=== PATIENT | male | born 1975 | race Caucasian/White ===

== ENCOUNTER 2019-01-06 13:58 | Emergency (ER) | payer SELFPAY ==
[~2019-01-06] VITALS: Ht 162.6 cm; Wt 59.1 kg
[2019-01-06 14:49] LABS: HEMATOCRIT 38.3 % (39.0-50.0); HEMOGLOBIN 13.4 g/dl (14.0-18.0); IMMATURE GRANULOCYTES 0.2 % (0.0-5.0); MEAN CORPUSCULAR HGB 31.8 pG CALC (26.0-32.0); NEUT# 3.68 thou/uL (1.82-7.42); RED BLOOD COUNT 4.21 mill/uL (4.70-6.10); RED CELL DISTRI WIDTH 12.6 % (11.5-15.5)
[2019-01-06] MEDS ORDERED: VENTOLIN HFA IN (15:05)
[2019-01-06] MEDS ORDERED: ADVAIR DISK1 IN (15:06)
[2019-01-06 15:17] LABS: ALKALINE PHOSPHATASE 53 u/l (38-126); ANION GAP 13 (6-22 (CALC)); BILIRUBIN, TOTAL 0.4 mg/dL (0.0-1.4); BUN 14 mg/dL (9-20); BUN/CREATININE RATIO 18 (12-20 (CALC)); CARBON DIOXIDE 26 mmol/l (22-30); CHLORIDE 106 mmol/l (95-108); CREATININE 0.8 mg/dL (0.7-1.3); GFR > 60 ML/MIN (>=60 (CALC)); GFR FOR AFR.AMER. > 60 ML/MIN (>=60 (CALC)); POTASSIUM 3.5 mmol/l (3.5-5.1); SGOT/AST 21 u/l (17-59); SODIUM 142 mmol/l (137-146); TOTAL PROTEIN 6.3 g/dL (6.3-8.2)
[2019-01-06] MEDS ORDERED: CIPROFLOXACN500 MG PO (16:22)
[2019-01-06] MEDS ORDERED: METRONIDAZOL500 MG PO (16:22)
[2019-01-06] MEDS ORDERED: ONDANSETRON4 MG PO (16:22)
[2019-01-06 16:34] VITALS: BP 156/94
== END 2019-01-06 16:35 | disposition home or self-care (01) | DRG 392 ==
LOC: ED 13:58
PROVIDERS: Family Medicine
DX: K57.32 Diverticulitis of large intestine without perforation or abscess without bleeding (principal); R07.81 Pleurodynia
CPT/HCPCS: Q9967

== ENCOUNTER 2019-03-01 09:01 | Emergency (ER) | payer SELFPAY ==
[~2019-03-01] VITALS: Ht 162.6 cm; Wt 61.4 kg
[~2019-03-01 09:01] MED LIST: ADVAIR DISK1 IN; CIPROFLOXACN500 MG PO; METRONIDAZOL500 MG PO; ONDANSETRON4 MG PO; VENTOLIN HFA IN
[2019-03-01 09:36] LABS: HEMATOCRIT 43.4 % (39.0-50.0); HEMOGLOBIN 14.8 g/dl (14.0-18.0); IMMATURE GRANULOCYTES 0.3 % (0.0-5.0); MEAN CELL VOLUME 91.9 fL CALC (80.0-100.0); MEAN CORPUSCULAR HGB 31.4 pG CALC (26.0-32.0); MEAN CORPUSCULAR HGB CONC 34.1 g/L CALC (32.0-36.0); NEUT# 4.08 thou/uL (1.82-7.42); RED BLOOD COUNT 4.72 mill/uL (4.70-6.10); RED CELL DISTRI WIDTH 12.7 % (11.5-15.5)
[2019-03-01] MEDS ORDERED: TRELEGY ELLIPTA1 AER IN (10:50)
[2019-03-01] MEDS ORDERED: DUONEB IN (10:51)
[2019-03-01 12:01] LABS: ALBUMIN 4.8 g/dL (3.2-5.0); ALKALINE PHOSPHATASE 65 u/l (38-126); ANION GAP 14 (6-22 (CALC)); BILIRUBIN, TOTAL 0.8 mg/dL (0.0-1.4); BUN 15 mg/dL (9-20); BUN/CREATININE RATIO 18 (12-20 (CALC)); CARBON DIOXIDE 28 mmol/l (22-30); CHLORIDE 104 mmol/l (95-108); CREATININE 0.8 mg/dL (0.7-1.3); GFR > 60 ML/MIN (>=60 (CALC)); GFR FOR AFR.AMER. > 60 ML/MIN (>=60 (CALC)); POTASSIUM 4.4 mmol/l (3.5-5.1); SGOT/AST 24 u/l (17-59); SODIUM 142 mmol/l (137-146); TOTAL PROTEIN 7.3 g/dL (6.3-8.2)
[2019-03-01] MEDS ORDERED: MEDDOSEPAK PO (13:24)
[2019-03-01] MEDS ORDERED: ZITHROMAX250 MG PO (13:24)
[2019-03-01] MEDS ORDERED: VENTOLIN HFA IN (13:24)
[2019-03-01 13:29] VITALS: BP 139/88
== END 2019-03-01 13:34 | disposition home or self-care (01) | DRG 192 ==
LOC: ED 09:01
PROVIDERS: Emergency Medicine
DX: J44.1 Chronic obstructive pulmonary disease with (acute) exacerbation (principal); R06.02 Shortness of breath
CPT/HCPCS: J3475

== ENCOUNTER 2019-04-07 19:36 | Inpatient (IN) | payer MEDICARE, OTHER ==
[~2019-04-07] VITALS: Ht 162.6 cm; Wt 59.8 kg
[~2019-04-07 19:36] MED LIST changes: +DUONEB IN; +MEDDOSEPAK PO; +TRELEGY ELLIPTA1 AER IN; +ZITHROMAX250 MG PO
[2019-04-07 20:03] LABS: HEMATOCRIT 46.3 % (39.0-50.0); HEMOGLOBIN 15.5 g/dl (14.0-18.0); IMMATURE GRANULOCYTES 0.3 % (0.0-5.0); MEAN CELL VOLUME 93.5 fL CALC (80.0-100.0); MEAN CORPUSCULAR HGB 31.3 pG CALC (26.0-32.0); MEAN CORPUSCULAR HGB CONC 33.5 g/L CALC (32.0-36.0); NEUT# 4.18 thou/uL (1.82-7.42); RED BLOOD COUNT 4.95 mill/uL (4.70-6.10); RED CELL DISTRI WIDTH 13.2 % (11.5-15.5)
[2019-04-07 20:17] LABS: ALBUMIN 5.2 g/dL (3.2-5.0); ALKALINE PHOSPHATASE 73 u/l (38-126); ANION GAP 20 (6-22 (CALC)); BILIRUBIN, TOTAL 0.8 mg/dL (0.0-1.4); BUN 16 mg/dL (9-20); BUN/CREATININE RATIO 17 (12-20 (CALC)); CARBON DIOXIDE 27 mmol/l (22-30); CHLORIDE 102 mmol/l (95-108); CREATININE 0.9 mg/dL (0.7-1.3); GFR > 60 ML/MIN (>=60 (CALC)); GFR FOR AFR.AMER. > 60 ML/MIN (>=60 (CALC)); POTASSIUM 4.8 mmol/l (3.5-5.1); SGOT/AST 29 u/l (17-59); SODIUM 145 mmol/l (137-146); TOTAL PROTEIN 7.9 g/dL (6.3-8.2)
[2019-04-07 20:29] LABS: MYOGLOBIN 60 ng/mL (0 - 121)
[2019-04-07 21:40] VITALS: BP 147/92
[2019-04-07 22:00] VITALS: BP 145/77
[2019-04-07 22:15] VITALS: BP 142/79
[2019-04-07 22:45] VITALS: BP 154/75
[2019-04-07 23:15] VITALS: BP 137/72
[2019-04-08] VITALS (12 sets, daily range): BP systolic 108–138; BP diastolic 62–85
[2019-04-08 10:43] LABS: URINE BILIRUBIN - DIPSTICK NEGATIVE (NEGATIVE); URINE BLOOD DIPSTICK NEGATIVE (NEGATIVE); URINE COLOR YELLOW; URINE GLUCOSE - DIPSTICK 500 mg/dL (NEGATIVE); URINE KETONE NEGATIVE (NEGATIVE); URINE LEUK ESTERASE NEGATIVE (NEGATIVE); URINE NITRITE - DIPSTICK NEGATIVE (Negative); URINE PH 5.5 (4.5-8.0); URINE PROTEIN - DIPSTICK NEGATIVE (NEG-TRACE); URINE SPECIFIC GRAVITY 1.025; URINE UROBILINOGEN - DIPSTICK 0.2 E.U./dL (0.2)
[2019-04-08] MEDS ORDERED: TYLENOL500 MG PO (15:09)
[2019-04-09] VITALS (8 sets, daily range): BP systolic 107–145; BP diastolic 53–89
[2019-04-09 05:50] LABS: MEAN CELL VOLUME 93.8 fL CALC (80.0-100.0); MEAN CORPUSCULAR HGB 31.4 pG CALC (26.0-32.0); MEAN CORPUSCULAR HGB CONC 33.5 g/L CALC (32.0-36.0); RED BLOOD COUNT 4.01 mill/uL (4.70-6.10); RED CELL DISTRI WIDTH 13.1 % (11.5-15.5)
[2019-04-09 05:57] LABS: HEMATOCRIT 37.6 % (39.0-50.0); HEMOGLOBIN 12.6 g/dl (14.0-18.0)
[2019-04-09 05:58] LABS: ANION GAP 14 (6-22 (CALC)); BUN 16 mg/dL (9-20); BUN/CREATININE RATIO 22 (12-20 (CALC)); CARBON DIOXIDE 26 mmol/l (22-30); CHLORIDE 104 mmol/l (95-108); CREATININE 0.7 mg/dL (0.7-1.3); GFR > 60 ML/MIN (>=60 (CALC)); GFR FOR AFR.AMER. > 60 ML/MIN (>=60 (CALC)); POTASSIUM 4.6 mmol/l (3.5-5.1); SODIUM 139 mmol/l (137-146)
[2019-04-10 00:18] VITALS: BP 147/93
[2019-04-10 04:30] VITALS: BP 132/91
[2019-04-10 05:41] LABS: ANION GAP 13 (6-22 (CALC)); BUN 21 mg/dL (9-20); BUN/CREATININE RATIO 26 (12-20 (CALC)); CARBON DIOXIDE 28 mmol/l (22-30); CHLORIDE 103 mmol/l (95-108); CREATININE 0.8 mg/dL (0.7-1.3); GFR > 60 ML/MIN (>=60 (CALC)); GFR FOR AFR.AMER. > 60 ML/MIN (>=60 (CALC)); POTASSIUM 4.6 mmol/l (3.5-5.1); SODIUM 139 mmol/l (137-146)
[2019-04-10 08:33] VITALS: BP 149/68
[2019-04-10 11:24] VITALS: BP 142/92
[2019-04-10 15:07] VITALS: BP 132/90
[2019-04-10 19:29] VITALS: BP 132/94
[2019-04-11 00:30] VITALS: BP 145/84
[2019-04-11 04:10] VITALS: BP 143/90
[2019-04-11 08:51] VITALS: BP 130/80
[2019-04-11 10:57] VITALS: BP 149/90
[2019-04-11 16:27] VITALS: BP 138/87
[2019-04-11 19:56] VITALS: BP 160/87
[2019-04-12] VITALS (7 sets, daily range): BP systolic 116–156; BP diastolic 71–94
[2019-04-13 04:42] VITALS: BP 144/85
[2019-04-13 08:11] VITALS: BP 132/84
[2019-04-13 10:52] VITALS: BP 138/90
[2019-04-13 15:26] VITALS: BP 107/70
[2019-04-13] MEDS ORDERED: PREDNISONE10 MG PO (17:22)
[2019-04-13] MEDS ORDERED: IPRATROPIU0.5 MG/3 M IN (17:33)
== END 2019-04-13 18:26 | disposition home or self-care (01) | DRG 189 ==
LOC: ED 19:36 → ED-I 20:20 → ED 21:17 → MS2 21:18 → ICU 21:18 → MS2 04-09 16:12
PROVIDERS: Emergency Medicine; Internal Medicine; ADMIT Internal Medicine; ATTEND Internal Medicine
DX: J96.22 Acute and chronic respiratory failure with hypercapnia (principal); J43.9 Emphysema, unspecified; J96.21 Acute and chronic respiratory failure with hypoxia; Z87.891 Personal history of nicotine dependence; Z99.81 Dependence on supplemental oxygen
CPT/HCPCS: J1650; Q9967

== ENCOUNTER 2019-05-10 17:26 | Inpatient (IN) | payer MEDICARE, OTHER ==
[~2019-05-10] VITALS: Ht 162.6 cm; Wt 61.5 kg
[2019-05-10] VITALS (10 sets, daily range): BP systolic 132–211; BP diastolic 78–109
[~2019-05-10 17:26] MED LIST changes: +IPRATROPIU0.5 MG/3 M IN; +PREDNISONE10 MG PO; +TYLENOL500 MG PO
[2019-05-10 17:58] LABS: HEMATOCRIT 43.2 % (39.0-50.0); IMMATURE GRANULOCYTES 0.6 % (0.0-5.0); MEAN CELL VOLUME 90.8 fL CALC (80.0-100.0); MEAN CORPUSCULAR HGB 31.1 pG CALC (26.0-32.0); MEAN CORPUSCULAR HGB CONC 34.3 g/L CALC (32.0-36.0); NEUT# 6.75 thou/uL (1.82-7.42); RED BLOOD COUNT 4.76 mill/uL (4.70-6.10); RED CELL DISTRI WIDTH 12.1 % (11.5-15.5)
[2019-05-10 18:02] LABS: HEMOGLOBIN 14.8 g/dl (14.0-18.0)
[2019-05-10 18:10] LABS: ANION GAP 12 (6-22 (CALC)); BUN 21 mg/dL (9-20); BUN/CREATININE RATIO 21 (12-20 (CALC)); CARBON DIOXIDE 33 mmol/l (22-30); CHLORIDE 98 mmol/l (95-108); GFR > 60 ML/MIN (>=60 (CALC)); GFR FOR AFR.AMER. > 60 ML/MIN (>=60 (CALC)); POTASSIUM 3.9 mmol/l (3.5-5.1); SODIUM 140 mmol/l (137-146)
[2019-05-11] VITALS (16 sets, daily range): BP systolic 94–149; BP diastolic 63–94
[2019-05-11 05:41] LABS: HEMATOCRIT 37.7 % (39.0-50.0); HEMOGLOBIN 13.1 g/dl (14.0-18.0); IMMATURE GRANULOCYTES 0.6 % (0.0-5.0); MEAN CELL VOLUME 90.2 fL CALC (80.0-100.0); MEAN CORPUSCULAR HGB 31.3 pG CALC (26.0-32.0); MEAN CORPUSCULAR HGB CONC 34.7 g/L CALC (32.0-36.0); NEUT# 4.48 thou/uL (1.82-7.42); RED BLOOD COUNT 4.18 mill/uL (4.70-6.10)
[2019-05-11 06:10] LABS: ANION GAP 11 (6-22 (CALC)); BUN 16 mg/dL (9-20); BUN/CREATININE RATIO 22 (12-20 (CALC)); CARBON DIOXIDE 29 mmol/l (22-30); CHLORIDE 102 mmol/l (95-108); CREATININE 0.7 mg/dL (0.7-1.3); GFR > 60 ML/MIN (>=60 (CALC)); GFR FOR AFR.AMER. > 60 ML/MIN (>=60 (CALC)); POTASSIUM 4.6 mmol/l (3.5-5.1); SODIUM 137 mmol/l (137-146)
[2019-05-12] VITALS (10 sets, daily range): BP systolic 109–149; BP diastolic 71–91
[2019-05-12 05:41] LABS: HEMATOCRIT 38.6 % (39.0-50.0); HEMOGLOBIN 13.2 g/dl (14.0-18.0); MEAN CELL VOLUME 91.3 fL CALC (80.0-100.0); MEAN CORPUSCULAR HGB 31.2 pG CALC (26.0-32.0); MEAN CORPUSCULAR HGB CONC 34.2 g/L CALC (32.0-36.0); RED BLOOD COUNT 4.23 mill/uL (4.70-6.10)
[2019-05-12 05:56] LABS: ANION GAP 11 (6-22 (CALC)); BUN 17 mg/dL (9-20); BUN/CREATININE RATIO 23 (12-20 (CALC)); CARBON DIOXIDE 30 mmol/l (22-30); CHLORIDE 103 mmol/l (95-108); CREATININE 0.7 mg/dL (0.7-1.3); GFR > 60 ML/MIN (>=60 (CALC)); GFR FOR AFR.AMER. > 60 ML/MIN (>=60 (CALC)); POTASSIUM 4.1 mmol/l (3.5-5.1); SODIUM 140 mmol/l (137-146)
[2019-05-13 00:03] VITALS: BP 143/76
[2019-05-13 04:05] VITALS: BP 151/81
[2019-05-13 08:00] VITALS: BP 141/90
[2019-05-13] MEDS ORDERED: ZITHROMAX250 MG PO (09:58)
[2019-05-13] MEDS ORDERED: PREDNISONE10 MG PO (09:58)
== END 2019-05-13 11:42 | disposition home or self-care (01) | DRG 189 ==
LOC: ED 17:26 → ED-I 18:31 → ED 18:51 → ICU 18:52 → MS2 05-12 15:05
PROVIDERS: Family Medicine; ADMIT Internal Medicine; ATTEND Internal Medicine
PROC: 5A09357 Assistance with Respiratory Ventilation, Less than 24 Consecutive Hours, Continuous Positive Airway Pressure (ICD-10-PCS; principal; 2019-05-10)
DX: J96.22 Acute and chronic respiratory failure with hypercapnia (principal); J43.9 Emphysema, unspecified; J96.21 Acute and chronic respiratory failure with hypoxia; K21.9 Gastro-esophageal reflux disease without esophagitis; M54.41 Lumbago with sciatica, right side; Z99.81 Dependence on supplemental oxygen; Z87.891 Personal history of nicotine dependence
CPT/HCPCS: J2060

== ENCOUNTER 2019-05-24 08:38 | Emergency (ER) | payer OTHER ==
[~2019-05-24] VITALS: Ht 162.6 cm; Wt 85.0 kg
[2019-05-24 09:07] LABS: HEMATOCRIT 42.6 % (39.0-50.0); HEMOGLOBIN 14.8 g/dl (14.0-18.0); IMMATURE GRANULOCYTES 0.5 % (0.0-5.0); MEAN CELL VOLUME 91.2 fL CALC (80.0-100.0); MEAN CORPUSCULAR HGB 31.7 pG CALC (26.0-32.0); MEAN CORPUSCULAR HGB CONC 34.7 g/L CALC (32.0-36.0); NEUT# 4.25 thou/uL (1.82-7.42); RED BLOOD COUNT 4.67 mill/uL (4.70-6.10); RED CELL DISTRI WIDTH 12.5 % (11.5-15.5)
[2019-05-24 09:34] LABS: ANION GAP 15 (6-22 (CALC)); BUN 19 mg/dL (9-20); BUN/CREATININE RATIO 22 (12-20 (CALC)); CARBON DIOXIDE 31 mmol/l (22-30); CHLORIDE 100 mmol/l (95-108); CREATININE 0.9 mg/dL (0.7-1.3); GFR > 60 ML/MIN (>=60 (CALC)); GFR FOR AFR.AMER. > 60 ML/MIN (>=60 (CALC)); POTASSIUM 4.4 mmol/l (3.5-5.1); SODIUM 142 mmol/l (137-146)
[2019-05-24] MEDS ORDERED: VENTOLIN H108 MCG/AC PO (10:23)
[2019-05-24] MEDS ORDERED: IPRATROPIU0.5 MG/3 M IN (10:23)
[2019-05-24] MEDS ORDERED: ZPAK PO (10:28)
[2019-05-24] MEDS ORDERED: PREDNISONE50 MG PO (10:28)
[2019-05-24 10:45] VITALS: BP 132/76
== END 2019-05-24 10:45 | disposition home or self-care (01) ==
LOC: ED 08:38
PROVIDERS: Family Medicine
DX: J44.1 Chronic obstructive pulmonary disease with (acute) exacerbation (principal); Z91.14 Patient's other noncompliance with medication regimen; R06.02 Shortness of breath

== ENCOUNTER 2019-05-30 18:17 | Emergency (ER) | payer OTHER ==
[~2019-05-30] VITALS: Ht 162.6 cm; Wt 81.8 kg
[~2019-05-30 18:17] MED LIST changes: +PREDNISONE50 MG PO; +VENTOLIN H108 MCG/AC PO; +ZPAK PO
[2019-05-30 19:11] LABS: HEMATOCRIT 43.2 % (39.0-50.0); HEMOGLOBIN 15.1 g/dl (14.0-18.0); IMMATURE GRANULOCYTES 0.6 % (0.0-5.0); MEAN CELL VOLUME 90.6 fL CALC (80.0-100.0); MEAN CORPUSCULAR HGB 31.7 pG CALC (26.0-32.0); NEUT# 5.01 thou/uL (1.82-7.42); RED BLOOD COUNT 4.77 mill/uL (4.70-6.10); RED CELL DISTRI WIDTH 12.7 % (11.5-15.5)
--- NOTE | 2019-05-30 19:13 | NUR ---
PATIENT RECEIVED 3 TX BACK TO BACK WITH DUONEB. ABG DRAWN AND ANALYSED. RESULT IN [facility]. AFTER SEEING THE PATIENT AFTER THE BREATHING TREATMENT, MD ORDERED INTUBATION. WAS INTUBATED WITH A 7.5 ETT AT 21 CM OF THE LIPS. TUBE PLACEMENT VERIFIED WITH CO2 DETECTOR, BREATH SOUND AND X-RAY. PLACED ON VENTILATOR WITH THE FOLLOWING SETTING: AC 12, VT 500, PEEP 5 AND 60% OXYGEN.
[2019-05-30 19:24] LABS: ANION GAP 16 (6-22 (CALC)); BUN 22 mg/dL (9-20); BUN/CREATININE RATIO 26 (12-20 (CALC)); CARBON DIOXIDE 30 mmol/l (22-30); CHLORIDE 100 mmol/l (95-108); CREATININE 0.9 mg/dL (0.7-1.3); GFR > 60 ML/MIN (>=60 (CALC)); GFR FOR AFR.AMER. > 60 ML/MIN (>=60 (CALC)); POTASSIUM 3.8 mmol/l (3.5-5.1); SODIUM 142 mmol/l (137-146)
[2019-05-31 03:00] VITALS: BP 98/61
== END 2019-05-30 22:06 | disposition short-term general hospital (02) ==
LOC: ED 18:17
PROVIDERS: Family Medicine
DX: J96.00 Acute respiratory failure, unspecified whether with hypoxia or hypercapnia (principal); J44.1 Chronic obstructive pulmonary disease with (acute) exacerbation

== ENCOUNTER 2019-09-24 17:23 | Observation (INO) | payer MEDICAID ==
[~2019-09-24] VITALS: Ht 162.6 cm; Wt 63.0 kg
--- NOTE | 2019-09-24 17:34 | NUR ---
PATIENT TO ROOM VIA WHEELCHAIR.
[2019-09-24 18:10] LABS: HEMOGLOBIN 14.6 g/dl (14.0-18.0); IMMATURE GRANULOCYTES 0.1 % (0.0-5.0); MEAN CELL VOLUME 89.4 fL CALC (80.0-100.0); MEAN CORPUSCULAR HGB 31.1 pG CALC (26.0-32.0); MEAN CORPUSCULAR HGB CONC 34.8 g/L CALC (32.0-36.0); NEUT# 3.96 thou/uL (1.82-7.42); RED BLOOD COUNT 4.7 mill/uL (4.70-6.10); RED CELL DISTRI WIDTH 12.9 % (11.5-15.5)
[2019-09-24 18:29] LABS: ALBUMIN 4.7 g/dL (3.2-5.0); ALKALINE PHOSPHATASE 56 u/l (38-126); ANION GAP 15 (6-22 (CALC)); BILIRUBIN, TOTAL 0.8 mg/dL (0.0-1.4); BUN 20 mg/dL (9-20); BUN/CREATININE RATIO 21 (12-20 (CALC)); CARBON DIOXIDE 26 mmol/l (22-30); CHLORIDE 103 mmol/l (95-108); CREATININE 0.9 mg/dL (0.7-1.3); GFR > 60 ML/MIN (>=60 (CALC)); GFR FOR AFR.AMER. > 60 ML/MIN (>=60 (CALC)); POTASSIUM 4.4 mmol/l (3.5-5.1); SGOT/AST 28 u/l (17-59); SODIUM 139 mmol/l (137-146); TOTAL PROTEIN 7.6 g/dL (6.3-8.2)
--- NOTE | 2019-09-24 18:34 | NUR ---
PT SITTING UP ON STRETCHER. RESP EVEN/UNLABORED 02 2L/M VIA NC. SATS 97%. ABLE TO SPEAK COMPLETE SENTENCES WITHOUT DIFFICULTY. LUNGS DIMINISHED BILAT
--- NOTE | 2019-09-24 18:50 | NUR ---
PLACED IN VIRTUAL BED SBAR SENT TO M/S
--- NOTE | 2019-09-24 19:00 | NUR ---
SBAR SENT TO ICU
[2019-09-24] MEDS ORDERED: SYMBICORT 80-4.5MCG IN (19:08)
[2019-09-24] MEDS ORDERED: SPIRIVA HANDIH18 MCG IN (19:09)
[2019-09-24] MEDS ORDERED: VENTOLIN HFA IN (19:10)
--- NOTE | 2019-09-24 19:14 | NUR ---
PT AWARE OF PENDING ADMIT TO HOSPITAL. IV SITE HEALTHY. NEW TEGADERM APPLIED TO SITE.
--- NOTE | 2019-09-24 20:24 | NUR ---
REPORT CALLED TO RAIZA, NURSE, IN ICU. PT MEDSURG OVERFLOW. IV SITE HEALTHY. PT ON 02 2L/M VIA NC. PT TRANSPORTED VIA WC IN STABLE CONDTION.
[2019-09-24 20:40] VITALS: BP 135/91
--- NOTE | 2019-09-24 20:45 | NUR ---
- PT. ARRIVED TO THE FLOOR VIA W/C ACCOMPANIED BY ER NURSE. PT. ON RA UPON ARRIVAL AND SPO2 89-91%, APPLIED O2 @2LITERS/MIN AND SPO2 UP TO 93%. ORIENTED TO ROOM, POC, AND CALL LIGHT; VERBALIZES UNDERSTANDING. PT. DOES NOT APPEAR SOB, RESP. EVEN AND UNLABORED. ADMISSION ASSESSMENT COMPLETED. PO FLUIDS GIVEN. RANJITH HOSE APPLIED TO BLE AND NON-SKID SOCKS. CLOTHES IRONER IN PLACE AND READING SR.B/P WNL. INSTRUCTED TO CALL FOR ANY NEEDS. CALL LIGHT IS IN REACH.
--- NOTE | 2019-09-24 21:00 | NUR ---
SPECIMEN CUP PROVIDED AND INSTRUCTED OF NEED OF SPUTUM SAMPLE IF ABLE TO PRODUCE; VERBALIZES UNDERSTANDING. CALL LIGHT IS IN REACH.
--- NOTE | 2019-09-24 23:00 | NUR ---
RESTING IN BED WITH NO DISTRESS NOTED; DENIES NEEDS AND VOICES NO CONCERNS. URINAL EMTPIED. CALL LIGHT IS IN REACH.
[2019-09-25] VITALS (8 sets, daily range): BP systolic 124–150; BP diastolic 70–88
--- NOTE | 2019-09-25 02:17 | NUR ---
PT. RESTING IN BED WITH NO DISTRESS NOTED; DENIES NEEDS. CALL LIGHT IS IN REACH.
--- NOTE | 2019-09-25 04:00 | NUR ---
PT. SITTING UP IN BED WITH NO DISTRESS NOTED. O2 INFUSING PER NC PER ORDER. VSS. URINAL EMPTIED. VOICES NO CONCERNS. CALL LIGHT IS IN REACH.
--- NOTE | 2019-09-25 06:45 | NUR ---
RECIEVED REPORT FROM FLETCHER EASTMAN. ASSUMED PT CARE.
--- NOTE | 2019-09-25 08:00 | NUR ---
PT A&OX4. ABLE TO MAKE NEEDS KNOWN. RESPIRATIONS EVEN/UNLABORED, SAO2@96% ON 2LPM VIA NC. LS DIMINISHED WITH EXP. WHEEZING IN THE BASES. PT DENIES SOB, CP OR DISTRESS AT THIS TIME. ABDOMEN NON-TENDER WITH BSX4 ACTIVE. CALL LIGHT IN REACH. WILL MONITOR.
--- NOTE | 2019-09-25 09:56 | NUR ---
FAMILY ARRIVED AT BEDSIDE FOR VISIT.
--- NOTE | 2019-09-25 11:15 | NUR ---
RAMSEY RICHARDS AT BEDSIDE FOR ASSESSMENT AND TO DISCUSS PLAN OF CARE, NEW ORDERS RECIEVED. FAMILY REMAINS AT BEDSIDE.
--- NOTE | 2019-09-25 12:08 | NUR ---
PT SITTING UP IN RECLINER, SPUTUM SAMPLE COLLECTED AND SENT TO LABE. PT OFFERS NO COMPLAINTS AT THIS TIME. CALL LIGHT IN REACH. WILL MONITOR.
--- NOTE | 2019-09-25 13:00 | NUR ---
DR. GALLO AT BEDSIDE FOR ASSESSMENT AND TO DISCUSS PLANN OF CARE, NEW ORDERS RECIEVED.
--- NOTE | 2019-09-25 16:20 | NUR ---
PT RESTING BACK IN BED. RESPIRATIONS EVEN/UNLABORED. SA02@99 ON 2LPM VIA N/C. CALL LIGHT IN REACH. WILL MONITOR.
--- NOTE | 2019-09-25 18:10 | NUR ---
PT ARRIVED TO MED/SURG ROOM 269 IN STABLE CONDITION VIA WHEELCHAIR ACCOMPANIED BY FLETCHER MANLEY;PT AMBULATED TO STANDING SCALE AND BEDSIDE WITH A STEADY GAIT,WT AND VS OBTAINED AT THIS TIME;PT A&O X4, ORIENTED TO ROOM AND CALL LIGHT SYSTEM;PT DENIES ANY CURRENT PAIN OR DISCOMFORTS,PAIN SCALE AND REPORTING EDUCATED;RESPIRATIONS EVEN AND UNLABORED ON O2 @ 2L VIA NC, NON-PRODUCTIVE COUGH NOTED AT TIMES;ABDOMEN SOFT ON PALPATION AND ACIVE IN ALL 4 QUADRANTS;STRONG PEDAL PULSES;SKIN INTACT;#20G TO LAC FLUSHED AND PATENT,SITE APPEARS HEALTHY;TELE MONITORING TO BE PLACED ON PT PER ORDER;PT DENIES ANY ADDITIONAL NEEDS AT THIS TIME AND IS ENCOURAGED TO CALL FOR ASSISTANCE IF NEEDED;CALL LIGHT IN REACH;WILL CONTINUE TO MONITOR
--- NOTE | 2019-09-25 20:08 | NUR ---
ASSESSMENT COMPLETED. NO DISTRESS NOTED. C/O COUGH AND MEDICATED WITH ORDERED ROBITUSSIN AC, WILL REASSESS. O2 INFUSING PER NC PER ORDER. IV SITE PATENT AND SL. PT .DENIES NEEDS FOR TORADOL AT THIS TIME AND EDUCATED ON PRN ORDER IF HE MAY NEED IT THROUGHOUT THE STAY. ENCOURAGED TO CALL FOR ANY NEEDS. CALL LIGHT IS IN REACH. WILL CONTINUE TO MONITOR.
--- NOTE | 2019-09-25 22:22 | NUR ---
PT. C/O LUNG PAIN WHEN COUGHING AND MEDICATED WITH ORDERED PRN TORADOL, WILL REASSESS.DENIES FURTHER NEEDS. CALL LIGHT IS IN REACH.
--- NOTE | 2019-09-25 23:28 | NUR ---
RESTING IN BED WITH NO DISTRESS NOTED;DENIES NEEDS. SCHED SOLU-MEDROL GIVEN. VSS.
--- NOTE | 2019-09-26 02:05 | NUR ---
RESTING IN BED WITH NO DISTRESS NOTED. DENIES NEEDS/PAIN. CALL LIGHT IS IN REACH.
[2019-09-26 04:39] VITALS: BP 154/97
--- NOTE | 2019-09-26 04:39 | NUR ---
PT SITTING UP IN CHAIR WITH NO DISTRESS NOTED; DENIES NEEDS/PAIN. VSS. CALL LIGHT IS IN REACH.
[2019-09-26 08:00] VITALS: BP 144/84
--- NOTE | 2019-09-26 08:10 | NUR ---
ASSESSMENT IS COMPLETED: IV SITE IS FREE FROM REDNESS OR EDEMA. HR IS REG,PULSES ARE STRONG X4, ABD IS SOFT WITH ACTIVE BS. BREATH SOUNDS ARE CLEAR AND DIMINISHED. O2 @ 2LITERS WITH NC. TELE MONITOR IN PLACE. CONTINUE TO OSBERVE AND MONITOR.
[2019-09-26 10:57] VITALS: BP 133/77
--- NOTE | 2019-09-26 12:30 | NUR ---
PT HAS BEEN AMBULATING IN THE ROOM. NO DISTRESS NOTED IV SITE IS FREE FROM REDNESS OR EDMEA.
[2019-09-26] MEDS ORDERED: ZITHROMAX250 MG PO (12:33)
[2019-09-26] MEDS ORDERED: IPRATROPIU0.5 MG/3 M IN (12:33)
[2019-09-26] MEDS ORDERED: VENTOLIN H108 MCG/AC PO (12:33)
[2019-09-26] MEDS ORDERED: SPIRIVA HANDIH18 MCG IN (12:33)
[2019-09-26] MEDS ORDERED: BIOTUSSIN PO (12:33)
[2019-09-26] MEDS ORDERED: PREDNISONE10 MG PO (12:33)
--- NOTE | 2019-09-26 15:00 | NUR ---
IV SITE DISCONTINEUD CATHETER INTACT. NO REDNESS OR EDEMA.DISCHARGE INSTRUCTIONS GIVEN AND VERBALIZED UNDERSTANDING. Discharge instructions given. Patient verbalizes understanding of same. Discharged in stable condition via Wheelchair to Home with family. All belongings sent with pt.
--- NOTE | 2019-09-30 14:28 | NUR ---
Pneumonia follow up call completed 09/30/19 @ 2:20 pm. Pt. has not seen PCP due to financial hardship. Pt. does have all medications prescribed at discharge and is taking them without issue. Pt. states he is feeling great and will get to dr as soon as he can. No questions or needs verbalized.
== END 2019-09-26 13:40 | disposition home or self-care (01) ==
LOC: ED 17:23 → ED-I 18:45 → ED 18:53 → ICU 18:54 → MS2 18:54
PROVIDERS: ADMIT Internal Medicine; ATTEND Internal Medicine
DX: J43.9 Emphysema, unspecified (principal); J96.21 Acute and chronic respiratory failure with hypoxia; J30.2 Other seasonal allergic rhinitis; Z99.81 Dependence on supplemental oxygen
CPT/HCPCS: G0378

== ENCOUNTER 2019-10-11 | Emergency (ER) | payer MEDICAID ==
[~2019-10-11] MED LIST changes: +BIOTUSSIN PO; +SPIRIVA HANDIH18 MCG IN; +SYMBICORT 80-4.5MCG IN
[2019-10-11] MEDS ORDERED: AMOXICILLIN875 MG PO (13:05)
[2019-10-11] MEDS ORDERED: TAM75CAP PO (13:05)
[2019-10-11] MEDS ORDERED: TESSALON PER100 MG PO (13:05)
[2021-01-16] MEDS ORDERED: GABAPENTIN100 MG PO (10:42)
[2021-01-16] MEDS ORDERED: LOSARTAN POTASS50 MG PO (10:42)
[2021-02-06] MEDS ORDERED: ZITHROMAX Z-PA250 MG PO (08:49)
[2021-02-06] MEDS ORDERED: ALBUTEROL SUL0.083 % IN (08:50)
== END 2019-10-11 13:17 | disposition home or self-care (01) | DRG 195 ==
DX: J10.1 Influenza due to other identified influenza virus with other respiratory manifestations (principal); J44.9 Chronic obstructive pulmonary disease, unspecified; F17.210 Nicotine dependence, cigarettes, uncomplicated

== ENCOUNTER 2021-02-12 06:29 | Day surgery (SDC) | payer MEDICARE, MEDICAID ==
[~2021-02-12] VITALS: Ht 162.6 cm; Wt 65.8 kg
[~2021-02-12 06:29] MED LIST changes: +ALBUTEROL SUL0.083 % IN; +AMOXICILLIN875 MG PO; +GABAPENTIN100 MG PO; +LOSARTAN POTASS50 MG PO; +TAM75CAP PO; +TESSALON PER100 MG PO; +ZITHROMAX Z-PA250 MG PO
[2021-02-12] MEDS ORDERED: HYDROCO/APAP1 TA9 PO (10:09)
[2021-02-12 12:51] VITALS: BP 152/78
== END 2021-02-12 13:10 | disposition home or self-care (01) ==
LOC: ORM 06:29
PROVIDERS: ATTEND Surgery
PROC: 0YU60JZ Supplement Left Inguinal Region with Synthetic Substitute, Open Approach (ICD-10-PCS; principal; 2021-02-12)
DX: K40.20 Bilateral inguinal hernia, without obstruction or gangrene, not specified as recurrent (principal); J44.9 Chronic obstructive pulmonary disease, unspecified; I10 Essential (primary) hypertension; Z99.81 Dependence on supplemental oxygen
CPT/HCPCS: C9290; J0131

== ENCOUNTER 2021-07-31 10:59 | Observation (INO) | payer MEDICARE, MEDICAID ==
[~2021-07-31] VITALS: Ht 162.6 cm; Wt 63.0 kg
[2021-07-31] VITALS (8 sets, daily range): BP systolic 86–120; BP diastolic 57–67
[~2021-07-31 10:59] MED LIST changes: +HYDROCO/APAP1 TA9 PO
--- NOTE | 2021-07-31 11:01 | NUR ---
TO ROOM VIA EMS, PT IN HIGH FOWLERSADITYA MD AT BEDSIDE.
--- NOTE | 2021-07-31 11:32 | NUR ---
PT HI FOWLERS ON BIPAP. VSS. PT IS CALM. CAP REFILL BRISK A&OX3.
[2021-07-31] MEDS ORDERED: PREDNISONE1 MG PO (11:36)
[2021-07-31 11:38] LABS: HEMATOCRIT 45.6 % (39.0-50.0); HEMOGLOBIN 15.8 g/dl (14.0-18.0); IMMATURE GRANULOCYTES 0.3 % (0.0-5.0); MEAN CELL VOLUME 93.3 fL CALC (80.0-100.0); MEAN CORPUSCULAR HGB 32.3 pG CALC (26.0-32.0); MEAN CORPUSCULAR HGB CONC 34.6 g/dL CAL (32.0-36.0); NEUT# 8.85 thou/uL (1.82-7.42); RED BLOOD COUNT 4.89 mill/uL (4.70-6.10); RED CELL DISTRI WIDTH 13.4 % (11.5-15.5)
[2021-07-31 11:46] LABS: ALBUMIN 4.7 g/dL (3.2-5.0); ALKALINE PHOSPHATASE 68 u/l (38-126); ANION GAP 15 (6-22 (CALC)); BUN 17 mg/dL (9-20); BUN/CREATININE RATIO 18 (12-20 (CALC)); CARBON DIOXIDE 27 mmol/l (22-30); CHLORIDE 101 mmol/l (95-108); GFR > 60 ML/MIN (>=60 (CALC)); GFR FOR AFR.AMER. > 60 ML/MIN (>=60 (CALC)); POTASSIUM 3.6 mmol/l (3.5-5.1); SGOT/AST 29 u/l (17-59); SODIUM 139 mmol/l (137-146)
--- NOTE | 2021-07-31 11:49 | NUR ---
FIO2 DECREASED TO 30%
[2021-07-31 11:58] LABS: MYOGLOBIN 58 ng/mL (0 - 121)
--- NOTE | 2021-07-31 12:54 | NUR ---
IV ABT INFUSING PT ADVISED OF PENDING ADMIT TO ICU. INDICATED UNDERSTANDING BIPAP CONTINUES. VSS. IV SITES HEALTHY. SKIN WARM AND DRY. CAP REFILL BRISK.
--- NOTE | 2021-07-31 13:27 | NUR ---
REPORT CALLED TO FLETCHER RAZO, ICU. ADVISED OF ALL ATTACHMENTS, EVENTS.
--- NOTE | 2021-07-31 13:42 | NUR ---
PT TO ROOM 1 ICU IN STABLE CONDTTION ON ECMO SPECIALIST. IV SITES HEALTHY. O2 2L/M VIA NC. BIPAP ACCOMPANIED W/RT.
--- NOTE | 2021-07-31 13:45 | NUR ---
PATIENT ARRIVED TO ICU ROOM 1 VIA ER VANESSA ACCOMPANIED BY ER NURSE AND RT. PATIENT ABLE TO TRANSFER SELF TO BED. PATIENT IS ALERT AND ORIENTED X3. ADMISSION ASSESSMENT COMPLETED AT THIS TIME. IV PATENT 2. ORIENTED TO ROOM AND UNIT. CALL LIGHT IN REACH. WILL CONTINUE TO MONITOR.
--- NOTE | 2021-07-31 14:13 | NUR ---
RT AT BEDSIDE ADMINISTERING NEB TREATMENT. WILL CONTINUE TO MONITOR.
--- NOTE | 2021-07-31 14:48 | NUR ---
Christina PRICE APRN AT BEDSIDE AT THIS TIME.
--- NOTE | 2021-07-31 17:13 | NUR ---
patient set up for pm meal.
[2021-07-31 17:58] LABS: URINE BLOOD DIPSTICK NEGATIVE (NEGATIVE); URINE COLOR YELLOW; URINE GLUCOSE - DIPSTICK NEGATIVE (NEGATIVE); URINE KETONE NEGATIVE (NEGATIVE); URINE LEUK ESTERASE NEGATIVE (NEGATIVE); URINE PROTEIN - DIPSTICK NEGATIVE (NEG-TRACE); URINE SPECIFIC GRAVITY >=1.030
--- NOTE | 2021-07-31 17:58 | NUR ---
patient sitting up in bed watching tv. resp are even and unlabored no distres noted call light in reach will continue to monitor
[2021-07-31 18:03] LABS: URINE BILIRUBIN - DIPSTICK NEGATIVE (NEGATIVE); URINE NITRITE - DIPSTICK NEGATIVE (Negative)
--- NOTE | 2021-07-31 18:59 | NUR ---
REPORT RECEIVED FROM Matt BOSS RN. CARE OF PT ASSUMED AT THIS TIME. Jeff TREJO DIE HARDENER IN ROOM WITH PT FOR [facility].
--- NOTE | 2021-07-31 19:40 | NUR ---
PT RESTING IN BED, APPEARS COMFORTABLE AND IN NO APPARENT DISTRESS. RESPIRATIONS REGULAR AND UNLABORED. COLA AND APPLE JUICE PROVIDED PER PT'S REQUEST. DENIES FURTHER NEEDS AT THIS TIME. CALL HANNA WITHIN REACH, AGREES TO CALL PRN.
--- NOTE | 2021-07-31 20:54 | NUR ---
CALL RECEIVED REQUESTING TO SPEAK WITH PT. CALLER IDENTIFIES SELF "GAIL/PT'S GIRLFRIEND", CONFIRMED WITH PT. PT AGREES TO TAKE CALL. CALL TRANSFERRED TO CORDLESS PHONE AND TAKEN TO PT.
[2021-08-01] VITALS: BP 111/58
[2021-08-01 02:00] VITALS: BP 99/57
[2021-08-01 04:00] VITALS: BP 116/70
--- NOTE | 2021-08-01 04:35 | NUR ---
Marli MARRUFO ECOMMERCE ANALYST IN ROOM COLLECTING LAB WORK.
[2021-08-01 04:50] LABS: HEMATOCRIT 40.3 % (39.0-50.0); HEMOGLOBIN 13.9 g/dl (14.0-18.0); MEAN CELL VOLUME 92.9 fL CALC (80.0-100.0); MEAN CORPUSCULAR HGB CONC 34.5 g/dL CAL (32.0-36.0); RED BLOOD COUNT 4.34 mill/uL (4.70-6.10); RED CELL DISTRI WIDTH 13.3 % (11.5-15.5)
[2021-08-01 05:06] LABS: BUN 20 mg/dL (9-20); BUN/CREATININE RATIO 21 (12-20 (CALC)); CARBON DIOXIDE 27 mmol/l (22-30); CHLORIDE 103 mmol/l (95-108); CREATININE 0.9 mg/dL (0.7-1.3); GFR > 60 ML/MIN (>=60 (CALC)); GFR FOR AFR.AMER. > 60 ML/MIN (>=60 (CALC)); SODIUM 138 mmol/l (137-146)
[2021-08-01 05:07] LABS: ANION GAP 13 (6-22 (CALC)); POTASSIUM 4.7 mmol/l (3.5-5.1)
[2021-08-01 06:00] VITALS: BP 105/75
--- NOTE | 2021-08-01 07:00 | NUR ---
REPORT RECEIVED FROM FLETCHER FORD
--- NOTE | 2021-08-01 07:06 | NUR ---
PT C NAD. VSS. RESTING COMFORTABLY. ON 2 LPM NC, SAME PATRICK USE PER PT. ACTIVITIES ATTENDANT TO MONITOR.
--- NOTE | 2021-08-01 07:10 | NUR ---
RT AT BEDSIDE ADMINISTERING BREATHING TX.
--- NOTE | 2021-08-01 07:30 | NUR ---
PT RESTING IN SEMI FOWLERS POSITION,A&O X3;VS OBTAINED AND ASSESSMENT COMPLETED;PT DENIES ANY CURRENT PAIN OR DISCOMFORTS,PAIN SCALE AND REPORTING EDUCATED;RESPIRATIONS EVEN AND UNLABORED ON O2 @ 2L VIA NC- PT IS HOME OXYGEN DEPENDENT ON 2L;CLEAR LUNG SOUNDS NOTED;ABDOMEN SOFT ON PALPATION AND ACTIVE IN ALL 4 QUADRANTS;STRONG PEDAL PULSES;SKIN INTACT;CARDIAC MONITORING IN PLACE READING SR 70'S;300CC OF CLEAR/YELLOW URINE EMPTIED FROM URINAL;#20G TO RAC FLUSHED AND PATENT.EMS #20G TO LH FLUSHED AND PATENT, BOTH SITES APPEAR HEALTHY;MEAL TRAY AND FRESH WATER PROVIDED;PT DENIES ANY ADDITIONAL NEEDS AND IS ENCOURAGED TO CALL FOR ASSISTANCE IF NEEDED;FALL PRECAUTIONS IN PLACE WITH BED IN THE LOWEST POSITION AND CALL LIGHT IN REACH;WILL CONTINUE TO MONITOR
[2021-08-01 08:00] VITALS: BP 121/65
[2021-08-01 08:34] VITALS: BP 121/65
--- NOTE | 2021-08-01 08:46 | NUR ---
AT BEDSIDE DISCUSSING POC WITH PT.
[2021-08-01] MEDS ORDERED: PREDNISONE50 MG PO (08:54)
--- NOTE | 2021-08-01 09:30 | NUR ---
PT RESTING IN SEMI FOWLERS POSITION;RESPIRATIONS EVEN AND UNLABORED ON O2 @ 2L VIA NC;PT DENIES ANY CURRENT PAIN OR DISCOMFORTS;ALL DISCHARGE INSTRUCTIONS PROVIDED AT THIS TIME.PT INSTRUCTED TO F/U WITH PCP, TAKE PREDNISONE DIRECTED (RX SENT TO [facility]), FINISH COURSE OF ABX ZITHRO AND CONTINUE BREATHING TREATMENTS AT HOME;PT VERBALIZES UNDERSTANDING AND DENIES ANY ADDITIONAL QUESTIONS OR NEEDS;#20G TO RAC AND #20G TO LH REMOVED WITH CATHETERS INTACT;WC TO BE PROVIDED FOR D/C HOME;SPOUSE TO TRANSPORT PT HOME;CALL LIGHT IN REACH;WILL CONTINUE TO MONITOR
--- NOTE | 2021-08-01 09:55 | NUR ---
Discharge instructions given. Patient verbalizes understanding of same. Discharged in stable condition via Wheelchair to Home with spouse. All belongings sent with pt. PT TRANSPORTED TO [facility] VIA WC ACCOMPANIED BY THIS WRITTER. PT LEFT WITH O2 @ 2L VIA HOME OXYGEN TANK.ALL BELONGINGS LEFT WITH PT.SPOUSE TO TRANSPORT PT HOME.
--- NOTE | 2021-08-06 07:41 | NUR ---
Pneumonia post discharge follow up call [id number] 08/04/21. Pt. states he is doing well, improving every day. No fever or chills since discharge. Pt. is still experiencing congestion, byt it is no worse since discharge. Follow up appt with PCP is scheduled today, 08/05/21. Pt. has obtained medication prescribed at discharge and has been taking without issue. No questions or concerns expressed by patient at this time. Appreciative of follow up call.
== END 2021-08-01 09:55 | disposition home or self-care (01) ==
LOC: ED 10:59 → ED-I 12:20 → ED 12:34 → ICU 12:35
PROVIDERS: Emergency Medicine; Nurse Practitioner; ADMIT Internal Medicine; ATTEND Internal Medicine
PROC: 5A09357 Assistance with Respiratory Ventilation, Less than 24 Consecutive Hours, Continuous Positive Airway Pressure (ICD-10-PCS; principal; 2021-07-31)
DX: J43.9 Emphysema, unspecified (principal); J96.01 Acute respiratory failure with hypoxia; I10 Essential (primary) hypertension; F17.200 Nicotine dependence, unspecified, uncomplicated; Z99.81 Dependence on supplemental oxygen; Z20.822 Contact with and (suspected) exposure to COVID-19
CPT/HCPCS: J1650